=== PATIENT | female | born 1975 | race African-American/Black ===

== ENCOUNTER 2020-12-28 17:57 | Observation (INO) ==
[2020-12-28] MEDS ORDERED: Naloxone 0.4 MG/ML INJ IVP PRN (22:16)
[2020-12-28] MEDS ORDERED: Isovue-370 500 ML BOTTLE IVP ONE (23:19)
[2020-12-29] MEDS ORDERED: Perflutren Lipid Microsphere 1.3 ML in 0.9 % Sodium Chloride 8.7 ML IVP PRN (05:11)
[2020-12-29 07:21] LABS: Basophils % 0.3 %; Eosinophils # 0.1 K/mcL (0.0-0.6); Eosinophils % 1.6 %; Hematocrit 32.8 % (35.3-44.9); Immature Granulocytes % 0.2 % (0-4); Lymphocytes # 1.7 K/mcL (0.6-4.6); Mean Corpuscular HGB Conc 33.5 g/dL (31.6-35.5); Mean Corpuscular Hemoglobin 31.1 pg (28.0-33.3); Mean Corpuscular Volume 92.7 fL (83.0-100.0); Mean Platelet Volume 10.2 fL (9.4-12.4); Monocytes # 0.5 K/mcL (0.0-1.3); Monocytes % 7.2 %; Neutrophils # 4.1 K/mcL (1.6-8.9); Platelet Count 228 K/mcL (140-400); Red Blood Count 3.54 M/mcL (3.82-4.97); Red Cell Distribution Width 13.9 % (11.5-14.5); Segmented Neutrophils % 64.7 %; White Blood Count 6.4 K/mcL (4.3-11.1)
[2020-12-29 08:25] LABS: Alanine Aminotransferase 10 Units/L (7-52); Albumin 3.6 g/dL (3.5-5.7); Albumin/Globulin Ratio 1.3 (1.1-2.2); Alkaline Phosphatase 60 Units/L (34-104); Aspartate Amino Transferase 15 Units/L (13-39); BUN/Creatinine Ratio 16 (6-26); Bilirubin,Total 0.5 mg/dL (0.3-1.0); Blood Urea Nitrogen 11 mg/dL (6-20); Calcium 8.4 mg/dL (8.6-10.3); Carbon Dioxide 23 mEq/L (23-29); Chloride 111 mEq/L (98-107); Globulin 2.7 g/dL (2.4-3.5); Glucose 100 mg/dL (70-105); Osmolality,Calculated 285 (280-300); Potassium 4.2 mEq/L (3.5-5.1); Sodium 138 mEq/L (136-145); Total Protein 6.3 g/dL (6.4-8.9); Troponin I 0.05 ng/mL (< 0.04); eGFR For African Americans > 60 (> 60); eGFR For Non-African Americans > 60 (> 60)
[2020-12-29 08:37] LABS: Thyroid Stimulating Hormone 1.826 mcIU/mL (0.340-5.600)
[2020-12-30 03:22] LABS: Hematocrit 34.7 % (35.3-44.9); Hemoglobin 11.3 g/dL (11.5-15.4); Mean Corpuscular HGB Conc 32.6 g/dL (31.6-35.5); Mean Corpuscular Hemoglobin 30.4 pg (28.0-33.3); Mean Corpuscular Volume 93.3 fL (83.0-100.0); Mean Platelet Volume 10.2 fL (9.4-12.4); Platelet Count 223 K/mcL (140-400); Red Blood Count 3.72 M/mcL (3.82-4.97); Red Cell Distribution Width 13.8 % (11.5-14.5); White Blood Count 6.3 K/mcL (4.3-11.1)
[2020-12-30 03:46] LABS: BUN/Creatinine Ratio 19 (6-26); Blood Urea Nitrogen 14 mg/dL (6-20); Calcium 8.7 mg/dL (8.6-10.3); Carbon Dioxide 23 mEq/L (23-29); Chloride 109 mEq/L (98-107); Glucose 118 mg/dL (70-105); Osmolality,Calculated 288 (280-300); Potassium 3.9 mEq/L (3.5-5.1); Sodium 138 mEq/L (136-145); eGFR For African Americans > 60 (> 60); eGFR For Non-African Americans > 60 (> 60)
[2020-12-30 10:35] VITALS: BP 120/74
== END 2020-12-30 16:37 | disposition home or self-care (01) ==
LOC: 3BNU → SUATTDRO 21:11
PROVIDERS: ADMIT Internal Medicine; ATTEND Nurse Practitioner

== ENCOUNTER 2021-02-15 13:17 | Inpatient (IN) ==
[2021-02-15] MEDS ORDERED: Clindamycin 900 MG/50 ML 900 MG/50 ML IV.SOLN IVPB ONE ×2 (13:35→20:31)
[2021-02-15] MEDS ORDERED: Ringers Solution, Lactated 1,000 ML IVC SCH (13:45)
[2021-02-15] MEDS ORDERED: *HR* OxyCODONE Immed Rel 5 MG TABLET PO PRN (13:58)
[2021-02-15] MEDS ORDERED: Promethazine 6.25 MG in Water for inj. (sterile) 20 ML IVPB PRN (13:58)
[2021-02-15] MEDS ORDERED: Ondansetron 4 MG/2 ML VIAL IVP PRN ×3 (13:58→20:31)
[2021-02-15] MEDS ORDERED: Lidocaine -MPF 2% 2 ML VIAL ONE (14:32)
[2021-02-15] MEDS ORDERED: *HR* FentaNYL (PF) 100 MCG/2 ML VIAL ONE ×2 (14:32→16:43)
[2021-02-15] MEDS ORDERED: *HR* Succinylcholine 200 MG/10 ML VIAL IVP ONE (14:32)
[2021-02-15] MEDS ORDERED: *HR* Rocuronium Bromide 50 MG/5 ML VIAL ONE (14:32)
[2021-02-15] MEDS ORDERED: Ondansetron 4 MG/2 ML VIAL ONE (14:32)
[2021-02-15] MEDS ORDERED: *HR* Midazolam HCl 2 MG/2 ML VIAL ONE (14:33)
[2021-02-15] MEDS ORDERED: *HR* Propofol 200 MG/20 ML VIAL IVP ONE (14:33)
[2021-02-15] MEDS ORDERED: Lidocaine Jelly 6ml 1 APPL/6 ML JEL.PF.APP ONE (16:27)
[2021-02-15] MEDS ORDERED: Acetaminophen IV 1,000 MG/100 ML BAG IVPB ONE (16:28)
[2021-02-15] MEDS ORDERED: Ketorolac 30 MG/ML VIAL ONE (16:40)
[2021-02-15] MEDS ORDERED: *HR* HYDROMORPHONE 2 MG/ML VIAL ONE (18:48)
[2021-02-15] MEDS ORDERED: *HR* HYDROcodone/Acet 5/325 mg TABLET PO PRN (19:16)
[2021-02-15] MEDS ORDERED: Naloxone 0.4 MG/ML INJ IVP PRN ×2 (19:16→20:31)
[2021-02-15] MEDS ORDERED: 0.9 % Sodium Chloride 1,000 ML IVC SCH ×2 (19:30→20:31)
[2021-02-15] MEDS: *HR* HYDROmorphone PF 0.5 MG/0.5 ML SYRINGE IVP PRN ×2 (19:32→19:39)
[2021-02-15] MEDS ORDERED: Ipratropium/Albuterol Neb 3 ML IH SCH (20:00)
[2021-02-15] MEDS ORDERED: Famotidine 20 MG TABLET PO SCH (21:00)
[2021-02-15] MEDS ORDERED: Gabapentin 300 MG CAPSULE PO SCH (21:00)
[2021-02-15] MEDS ORDERED: Sennosides/Docusate Sodium TABLET PO SCH (21:00)
[2021-02-15] MEDS: Sennosides/Docusate Sodium TABLET PO SCH (21:23)
[2021-02-15] MEDS: *HR* Heparin 5,000 UNIT/ML VIAL SQ SCH (21:23)
[2021-02-15] MEDS: Famotidine 20 MG TABLET PO SCH (21:23)
[2021-02-15] MEDS: Gabapentin 300 MG CAPSULE PO SCH (21:23)
[2021-02-15] MEDS ORDERED: *HR* Heparin 5,000 UNIT/ML VIAL SQ SCH (22:00)
[2021-02-15] MEDS: Ipratropium/Albuterol Neb 3 ML IH SCH (23:45)
[2021-02-16] MEDS ORDERED: Ketorolac 15 MG/ML VIAL IVP SCH
[2021-02-16] MEDS: Ketorolac 15 MG/ML VIAL IVP SCH ×4 (00:48→19:20)
[2021-02-16 01:48] LABS: Hematocrit 34.5 % (35.3-44.9); Hemoglobin 11.6 g/dL (11.5-15.4); Mean Corpuscular HGB Conc 33.6 g/dL (31.6-35.5); Mean Corpuscular Hemoglobin 31.4 pg (28.0-33.3); Mean Corpuscular Volume 93.2 fL (83.0-100.0); Mean Platelet Volume 10.2 fL (9.4-12.4); Platelet Count 209 K/mcL (140-400); Red Cell Distribution Width 13.5 % (11.5-14.5); White Blood Count 13.5 K/mcL (4.3-11.1)
[2021-02-16 02:06] LABS: BUN/Creatinine Ratio 11 (6-26); Blood Urea Nitrogen 8 mg/dL (6-20); Calcium 8.7 mg/dL (8.6-10.3); Carbon Dioxide 25 mEq/L (23-29); Chloride 105 mEq/L (98-107); Glucose 140 mg/dL (70-105); Magnesium 1.9 mg/dL (1.6-2.6); Osmolality,Calculated 281 (280-300); Potassium 4.5 mEq/L (3.5-5.1); Sodium 135 mEq/L (136-145); eGFR For African Americans > 60 (> 60); eGFR For Non-African Americans > 60 (> 60)
[2021-02-16] MEDS: *HR* HYDROcodone/Acet 5/325 mg TABLET PO PRN ×2 (02:58→09:06)
[2021-02-16] MEDS: Ipratropium/Albuterol Neb 3 ML IH SCH ×5 (04:08→19:58)
[2021-02-16] MEDS: *HR* Heparin 5,000 UNIT/ML VIAL SQ SCH ×3 (06:49→20:54)
[2021-02-16] MEDS: Sennosides/Docusate Sodium TABLET PO SCH ×2 (09:06→20:54)
[2021-02-16] MEDS: Gabapentin 300 MG CAPSULE PO SCH ×3 (09:06→20:54)
[2021-02-16] MEDS: Famotidine 20 MG TABLET PO SCH ×2 (09:06→21:59)
[2021-02-16] MEDS: Albumin Human 5% 12.5 GM/250 ML IV.SOLN IVC SCH ×2 (16:01→16:53)
[2021-02-17] MEDS: Ketorolac 15 MG/ML VIAL IVP SCH ×5 (00:04→23:18)
[2021-02-17] MEDS: Ipratropium/Albuterol Neb 3 ML IH SCH ×7 (00:06→23:35)
[2021-02-17] MEDS: *HR* Heparin 5,000 UNIT/ML VIAL SQ SCH ×3 (05:13→23:19)
[2021-02-17] MEDS: Famotidine 20 MG TABLET PO SCH ×2 (08:05→19:48)
[2021-02-17] MEDS: Gabapentin 300 MG CAPSULE PO SCH ×3 (08:05→19:48)
[2021-02-17] MEDS: Sennosides/Docusate Sodium TABLET PO SCH ×2 (08:05→19:48)
[2021-02-17] MEDS: *HR* HYDROcodone/Acet 5/325 mg TABLET PO PRN (08:05)
[2021-02-17] MEDS: Metoprolol XL (24 HR) Succ 25 MG TAB.ER.24H PO SCH (09:00)
[2021-02-17] MEDS ORDERED: Metoprolol XL (24 HR) Succ 25 MG TAB.ER.24H PO SCH (09:00)
[2021-02-17 09:18] LABS: Hematocrit 30.8 % (35.3-44.9); Hemoglobin 10.3 g/dL (11.5-15.4); Mean Corpuscular HGB Conc 33.4 g/dL (31.6-35.5); Mean Corpuscular Hemoglobin 31.2 pg (28.0-33.3); Mean Corpuscular Volume 93.3 fL (83.0-100.0); Mean Platelet Volume 10.3 fL (9.4-12.4); Platelet Count 191 K/mcL (140-400); Red Cell Distribution Width 13.9 % (11.5-14.5); White Blood Count 11.1 K/mcL (4.3-11.1)
[2021-02-17 09:37] LABS: BUN/Creatinine Ratio 13 (6-26); Blood Urea Nitrogen 9 mg/dL (6-20); Calcium 8.4 mg/dL (8.6-10.3); Carbon Dioxide 26 mEq/L (23-29); Chloride 106 mEq/L (98-107); Glucose 123 mg/dL (70-105); Osmolality,Calculated 284 (280-300); Potassium 3.9 mEq/L (3.5-5.1); Sodium 137 mEq/L (136-145); eGFR For African Americans > 60 (> 60); eGFR For Non-African Americans > 60 (> 60)
[2021-02-18] MEDS: Ipratropium/Albuterol Neb 3 ML IH SCH ×6 (04:11→23:47)
[2021-02-18] MEDS: Ketorolac 15 MG/ML VIAL IVP SCH ×4 (05:29→23:15)
[2021-02-18] MEDS: *HR* Heparin 5,000 UNIT/ML VIAL SQ SCH ×3 (05:29→23:15)
[2021-02-18] MEDS: Gabapentin 300 MG CAPSULE PO SCH ×3 (09:29→19:32)
[2021-02-18] MEDS: Metoprolol XL (24 HR) Succ 25 MG TAB.ER.24H PO SCH (09:29)
[2021-02-18] MEDS: Famotidine 20 MG TABLET PO SCH ×2 (09:30→19:32)
[2021-02-18] MEDS: Sennosides/Docusate Sodium TABLET PO SCH ×2 (09:30→19:32)
[2021-02-19] MEDS: Ipratropium/Albuterol Neb 3 ML IH SCH ×3 (04:13→11:33)
[2021-02-19] MEDS: *HR* Heparin 5,000 UNIT/ML VIAL SQ SCH (05:07)
[2021-02-19] MEDS: Ketorolac 15 MG/ML VIAL IVP SCH (05:07)
[2021-02-19 07:48] VITALS: BP 117/69; TEMP 98.6
[2021-02-19] MEDS: Sennosides/Docusate Sodium TABLET PO SCH (08:54)
[2021-02-19] MEDS: Metoprolol XL (24 HR) Succ 25 MG TAB.ER.24H PO SCH (08:54)
[2021-02-19] MEDS: Famotidine 20 MG TABLET PO SCH (08:54)
[2021-02-19] MEDS: Gabapentin 300 MG CAPSULE PO SCH (08:54)
[2021-02-19 11:10] VITALS: PULSE 98
[2021-02-19 16:49] VITALS: O2SAT 97
== END 2021-02-19 12:05 | disposition home or self-care (01) | DRG 404 ==
LOC: SAMDAY 13:17 → 2NNU 20:26
PROVIDERS: ADMIT Thoracic Surgery (Cardiothoracic Vascular Surgery); ATTEND Thoracic Surgery (Cardiothoracic Vascular Surgery)